=== PATIENT | female | born 1985 | race Hispanic/Latino ===

== ENCOUNTER 2019-02-20 00:06 | Inpatient (IN) | payer OTHER ==
[~2019-02-20] VITALS: Ht 161.3 cm; Wt 111.0 kg
[2019-02-20] MEDS ORDERED: VITAFOL-OB+DHA1 EACH PO (01:25)
[2019-02-20] MEDS ORDERED: HUMULIN 70100 UNIT/1 (01:26)
--- NOTE | 2019-02-20 14:02 | PR ---
[facility] [address] [facility] [facility] [place], [place] [address] Signed Progress Notes IP Datetime Report Generated by CPN: 02/20/2019 14:02 PROGRESS NOTES: [id number] Impression: Normal progression of labor Plan: Continue present management; Anticipate Vaginal Delivery VITAL SIGNS: [id number] Vital Signs: Reviewed; Within Normal Limits EXAM: [id number] Dilatation: 4.5 Effacement: 80 Station: -2 Uterine Contractions: every 2-3 minutes MEMBRANES: [id number] Membrane Status: Ruptured Amniotic Fluid Color: Clear ROM Note: SROM Comments: Getting more uncomfortable, would like Epidural - Anesthesia called Fetus A: [id number] FHR Baseline: 130 Variability: Moderate 6-25bpm Accelerations: 15X15 Decelerations: None FHR Category: Category I Presentation: Vertex Fetus B: [id number] Signing Physician: Amalia Tariq MD Copies: ~ *Electronically Signed* 02/20/19 1402 AMALIA TARIQ MD PATIENT NAME: ISRA BURGESS PROGRESS NOTE DATE OF : 81 PHYSICIAN: AMALIA TARIQ MD RPT #: [id number] REPORT IS CONFIDENTIAL AND NOT TO BE RELEASED WITHOUT AUTHORIZATION
--- NOTE | 2019-02-21 09:21 | PR ---
[facility] [address] [facility] [place] [address] Signed PP Progress Notes Datetime Report Generated by CPN: 02/21/2019 09:21 SUBJECTIVE: [id number] Pain: Within normal limits Nausea/Vomiting: Denies Vital Signs: [id number] Vital Signs: Reviewed; Within Normal Limits Notable Details: PP Hgb/Hct = 11.5/34.6 EXAM: [id number] Abdomen/Uterus: Normal Lochia: Normal Extremities: Normal IMPRESSION/PLAN/PROCEDURES: [id number] Impression: Normal progression Plan: Continue present management Procedures: None Progress Notes: Doing well, wihtout complaint. Signing Physician: Amalia Tariq MD Copies: ~ *Electronically Signed* 02/21/19 09 AMALIA TARIQ MD PATIENT NAME: ISRA BURGESS PROGRESS NOTE DATE OF : 81 PHYSICIAN: AMALIA TRAIQ MD RPT #: [id number] REPORT IS CONFIDENTIAL AND NOT TO BE RELEASED WITHOUT AUTHORIZATION
--- NOTE | 2019-02-22 09:19 | PR ---
[facility] [address] [facility] [facility] [place], [place] [address] Signed PP Progress Notes Datetime Report Generated by CPN: 02/22/2019 09:19 SUBJECTIVE: [id number] Pain: Within normal limits Nausea/Vomiting: Denies Flatus: Yes Bowel Movement: Yes Vital Signs: [id number] Vital Signs: Reviewed; Within Normal Limits Notable Details: PP Hgb/Hct = 11.5/34.6 EXAM: [id number] Cardiovascular: Normal Respiratory: Normal Abdomen/Uterus: Normal Lochia: Normal Vulva/Perineum: Not Done Breasts: Normal CVA Tenderness: Normal Extremities: Normal Incision: Not Applicable Progress: Normal Exam Comments: Fundus firm U-2 IMPRESSION/PLAN/PROCEDURES: [id number] Impression: Normal progression Plan: Discharge Procedures: None Progress Notes: Pt seen and examined. doing well. Ambulating, voiding, and tolerating full diet. well. Desires d/c home. Planning [employer] Signing Physician: Vinay Mott DO Copies: ~ *Electronically Signed* 02/22/19 0919 VINAY MOTT DO PATIENT NAME: ISRA BURGESS PROGRESS NOTE DATE OF : 81 PHYSICIAN: VINAY MOTT DO RPT #: [id number] REPORT IS CONFIDENTIAL AND NOT TO BE RELEASED WITHOUT AUTHORIZATION
--- NOTE | 2019-02-22 12:53 | NUR ---
[facility] STAFF REQUESTED MY PRESENCE FOR NEW PARENTS THAT WOULD LIKE A BLESSING BEFORE DC. NEW BABY "PALAK" WAS JOINED BY HIS EXTENDED FAMILY, AND I WAS INFORMED THAT HIS MIDDLE NAME WAS "MCKENZIE" AFTER MCKENZIE! GAVE AN [employer] CARD AND PIN IN [employer] TO THEM AND OFFERED A PRAYER OF BLESSING. THEY SEEMED VERY GRATEFUL AND MENTIONED THAT THEY HAD A WONDERFUL EXPERIENCE AT [facility]. EXTENDED A BLESSING, WILL FOLLOW NEEDED
== END 2019-02-22 13:41 | disposition home or self-care (01) | DRG 806 ==
LOC: FBC 00:06
PROVIDERS: ADMIT General Practice
PROC: 10E0XZZ Delivery of Products of Conception, External Approach (ICD-10-PCS; principal; 2019-02-20)
PROC: 0HQ9XZZ Repair Perineum Skin, External Approach (ICD-10-PCS; 2019-02-20)
PROC: 3E0P7VZ Introduction of Hormone into Female Reproductive, Via Natural or Artificial Opening (ICD-10-PCS; 2019-02-20)
PROC: 00HU33Z Insertion of Infusion Device into Spinal Canal, Percutaneous Approach (ICD-10-PCS; 2019-02-20)
PROC: 3E0R3BZ Introduction of Anesthetic Agent into Spinal Canal, Percutaneous Approach (ICD-10-PCS; 2019-02-20)
DX: O24.424 Gestational diabetes mellitus in childbirth, insulin controlled (principal); O41.03X0 Oligohydramnios, third trimester, not applicable or unspecified; Z37.0 Single live birth; Z3A.38 38 weeks gestation of pregnancy; O99.824 Streptococcus B carrier state complicating childbirth; O70.0 First degree perineal laceration during delivery
CPT/HCPCS: 01960; 36415; 85027; J2540; J2590; J7060; J7120